=== PATIENT | female | born 1940 | race Two or more races ===

== ENCOUNTER 2016-05-26 08:36 | Emergency (ER) | payer MEDICARE, MEDICAID ==
[~2016-05-26] VITALS: Ht 162.6 cm; Wt 68.0 kg
[~2016-05-26 08:36] MED LIST: ACET500C8 PO; AMBR1TAB PO; AMLO10TA2 PO; B-COTAB10 OR; CALC667T2 PO; FOLITAB45 PO; GLIP-116 PO; INSU70IN9 SC; LABE5INJ PO; LISI40TA PO; MESA400C PO; OMEP20TA34 PO
[2016-05-26 10:19] LABS: Basophils # (auto) 0 uL; Basophils % (auto) 0.4 % (0.0-2.0); DEFINITIVE VIEW TRANSMISSION; Eosinophils # (auto) 0.1 uL; Eosinophils % (auto) 1.7 % (0.0-7.0); Lymphocytes # (auto) 0.6 uL; Lymphocytes % (auto) 14.1 % (10.0-50.0); Mean Corpuscular Hemoglobin 33.4 pg (28.0-32.0); Mean Platelet Volume 7.3 fL (7.4-10.4); Monocytes # (auto) 0.4 uL; Monocytes % (auto) 9.3 % (0.0-12.0); Neutrophils # (auto) 3.2 uL; Neutrophils % (auto) 74.5 % (37.0-80.0); Platelet Count (auto) 183 10^3/uL (140-450); Red Cell Distribution Width 19.1 % (11.6-16.0); White Blood Cell 4.3 10^3/uL (4.4-10.8)
[2016-05-26 10:36] LABS: Albumin 3.6 g/dL (3.4-5.0); BUN/Creatinine Ratio 5.9; Bilirubin, Total 0.7 mg/dL (0.2-1.0); Calcium 8.8 mg/dL (8.5-10.1); Potassium 3.7 mmol/L (3.5-5.1); Total Protein 7.5 g/dL (6.4-8.2)
[2016-05-26 10:41] LABS: Hemoglobin 6.9 g/dL (12.2-16.2)
[2016-05-26] MEDS ORDERED: ACETAMINOPHEN 325 MG TAB PO ONE (11:00)
[2016-05-26] MEDS ORDERED: NICARDIPINE 25MG/250ML BAG KIT 250 ML IV SCH (11:14)
[2016-05-26 12:08] VITALS: BP 122/56
[2016-05-26 12:15] LABS: Anisocytosis Slight; Platelet Estimate Adequate
[2016-05-26] MEDS ORDERED: DILTIAZEM HCL 25 MG/5 ML VIAL IV ONE (12:15)
== END 2016-05-26 12:11 | disposition short-term general hospital (02) ==
LOC: ER 08:36 → EDBD 08:36 → ER 12:11
DX: S06.5X0A Traumatic subdural hemorrhage without loss of consciousness, initial encounter (principal); I12.0 Hypertensive chronic kidney disease with stage 5 chronic kidney disease or end stage renal disease; N18.6 End stage renal disease; D64.9 Anemia, unspecified; E11.9 Type 2 diabetes mellitus without complications; M19.90 Unspecified osteoarthritis, unspecified site; Z99.2 Dependence on renal dialysis; W01.0XXA Fall on same level from slipping, tripping and stumbling without subsequent striking against object, initial encounter; Y93.89 Activity, other specified; Y99.8 Other external cause status; Y92.89 Other specified places as the place of occurrence of the external cause
CPT/HCPCS: 36415; 70450; 71010; 71111; 73590; 80053; 84484; 85025; 86850; 86900; 86901; 93005; 93971; 96374; 99291

== ENCOUNTER 2017-07-12 12:35 | Inpatient (IN) | payer MEDICARE, MEDICAID ==
[~2017-07-12] VITALS: Ht 154.9 cm; Wt 63.0 kg
[~2017-07-12 12:35] MED LIST changes: +ACE500T PO; -ACET500C8 PO; +ALEN35TA18 PO; -AMLO10TA2 PO; +AMLO5TAB2 PO; -B-COTAB10 OR; +B-COTAB10 PO; -CALC667T2 PO; -INSU70IN9 SC; +INSUINJ49 SC; -LABE5INJ PO; -LISI40TA PO
[2017-07-12] MEDS ORDERED: DEXTROSE 50% SYRINGE 50 ML IV ONE (12:41)
[2017-07-12] MEDS ORDERED: SODIUM CHLORIDE 0.9% 1,000 ML IV ONE (12:59)
[2017-07-12] MEDS ORDERED: PROMETHAZINE HCL 25 MG/ML 1ML IV ONE (13:00)
[2017-07-12] MEDS ORDERED: PROMETHAZINE HCL 25 MG/ML 1ML ONE (13:01)
[2017-07-12] MEDS ORDERED: DEXTROSE (50%) 50ML SYRG IV ONE ×2 (13:15→15:45)
[2017-07-12 13:45] LABS: Basophils # (auto) 0.1 uL; Basophils % (auto) 1.2 % (0.0-2.0); Eosinophils # (auto) 0 uL; Eosinophils % (auto) 0.8 % (0.0-7.0); Hematocrit 35.1 % (36.0-46.0); Hemoglobin 11.5 g/dL (12.2-16.2); Lymphocytes # (auto) 0.7 uL; Lymphocytes % (auto) 11.9 % (10.0-50.0); Mean Corpuscular Hemoglobin 32.3 pg (28.0-32.0); Mean Corpuscular Hgb Conc. 32.8 g/dL (32.0-36.0); Mean Corpuscular Volume 98.5 fL (80.0-100.0); Monocytes # (auto) 0.2 uL; Monocytes % (auto) 4.2 % (0.0-12.0); Neutrophils # (auto) 4.6 uL; Neutrophils % (auto) 81.9 % (37.0-80.0); Platelet Count (auto) 208 10^3/uL (140-450); Red Blood Cells 3.56 10^6/uL (4.0-5.20); Red Cell Distribution Width 17.8 % (11.8-14.3); White Blood Cell 5.6 10^3/uL (4.4-10.8)
[2017-07-12 13:52] LABS: Albumin 3.3 g/dL (3.4-5.0); Anion Gap 11 (5-15); Blood Alcohol < 3.0 mg/dL (0-5); Blood Urea Nitrogen 47 mg/dL (7-18); Calcium 8.6 mg/dL (8.5-10.1); Carbon Dioxide 27 mmol/L (21-32); Chloride 97 mmol/L (98-107); Glucose 114 mg/dL (74-106); Magnesium 2.4 mg/dL (1.6-2.6); Potassium 3.5 mmol/L (3.5-5.1); Sodium 135 mmol/L (136-145)
[2017-07-12 13:54] LABS: Alanine Aminotransferase 26 U/L (13-56); BUN/Creatinine Ratio 9.8; GFR African American 11 mL/min; GFR Non-African American 9 mL/min
[2017-07-12 13:59] LABS: Alkaline Phosphatase 85 U/L (45-117); Aspartate Aminotransferase 29 U/L (15-37); Bilirubin, Total 0.4 mg/dL (0.2-1.0); Total Protein 7.5 g/dL (6.4-8.2)
[2017-07-12] MEDS ORDERED: OCTREOTIDE ACETATE 100 MCG/ML VL SUBCUT ONE ×3 (15:45→17:30)
[2017-07-12 15:55] LABS: Urine Bacteria NONE SEEN /hpf (None Seen); Urine Blood 2+ /uL (Negative); Urine Specific Gravity 1.011 (1.001-1.035); Urine WBC 390 /hpf (0 - 5)
[2017-07-12] MEDS ORDERED: cefTRIAXone 1GM/10ml IVPUSH 10 ML IV ONE ×2 (16:30)
[2017-07-12] MEDS ORDERED: DEXTROSE (50%) 50ML SYRG IV PRN (16:30)
[2017-07-12] MEDS ORDERED: MORPHINE SULFATE 8mg/ml INJ SDV IV PRN ×2 (16:30)
[2017-07-12] MEDS ORDERED: NITROGLYCERIN 0.4 MG SL TAB SL PRN (16:30)
[2017-07-12] MEDS ORDERED: LORazepam 0.5 MG TAB PO PRN (16:30)
[2017-07-12] MEDS ORDERED: ALBUTEROL SULF 2.5 MG/0.5ML(0.5%) NEB SOLN NEB PRN (16:30)
[2017-07-12] MEDS ORDERED: TEMAZEPAM 15 MG CAP PO PRN (16:30)
[2017-07-12] MEDS ORDERED: LACTULOSE 20Gm/30ML SOLN PO PRN (16:30)
[2017-07-12] MEDS ORDERED: ACETAMINOPHEN 500 MG TAB PO PRN (16:30)
[2017-07-12] MEDS ORDERED: PROMETHAZINE HCL 25 MG/ML 1ML IV PRN (16:30)
[2017-07-12] MEDS ORDERED: LABETALOL HCL 5 MG/ML ML 20ML VIAL IV PRN (16:45)
[2017-07-12] MEDS: ENOXAPARIN SOD 30 MG/0.3 ML SYRINGE SC SCH (17:51)
[2017-07-12] MEDS ORDERED: DEXTROSE 10% 1,000 ML IV ONE (18:30)
[2017-07-12] MEDS: ACCU-CHEK COMFORT CURVE STRIP VI SCH ×2 (20:23→23:58)
[2017-07-12] MEDS: SODIUM CHLOR 0.9% PF (SALINE LOCK) 10ML VIAL/SYR IV SCH (21:32)
[2017-07-12] MEDS: PANTOPRAZOLE 40 MG TAB PO SCH (21:33)
[2017-07-12] MEDS: MESALAMINE 400mg Delayed Release Cap PO SCH (21:33)
[2017-07-12] MEDS: HYDROcodone-ACET 5/325MG TAB PO PRN (21:36)
[2017-07-12 21:44] VITALS: BP 156/83
[2017-07-12 22:00] VITALS: BP 161/76
[2017-07-12] MEDS ORDERED: OMEPRAZOLE 20 MG PO SCH (22:00)
[2017-07-12 23:00] VITALS: BP 149/66
[2017-07-13] VITALS (11 sets, daily range): BP systolic 138–177; BP diastolic 54–78
[2017-07-13] MEDS: LABETALOL HCL 5 MG/ML ML 20ML VIAL IV PRN ×4 (00:02→15:51)
[2017-07-13] MEDS: ACCU-CHEK COMFORT CURVE STRIP VI SCH ×6 (04:30→22:00)
[2017-07-13 05:08] LABS: Basophils # (auto) 0.1 uL; Basophils % (auto) 1.3 % (0.0-2.0); Eosinophils # (auto) 0.1 uL; Eosinophils % (auto) 1.3 % (0.0-7.0); Hematocrit 32.8 % (36.0-46.0); Hemoglobin 11.2 g/dL (12.2-16.2); Lymphocytes # (auto) 1.3 uL; Lymphocytes % (auto) 22.2 % (10.0-50.0); Mean Corpuscular Hemoglobin 33.7 pg (28.0-32.0); Mean Corpuscular Hgb Conc. 34.1 g/dL (32.0-36.0); Mean Corpuscular Volume 98.7 fL (80.0-100.0); Monocytes # (auto) 0.5 uL; Monocytes % (auto) 8.1 % (0.0-12.0); Neutrophils # (auto) 3.9 uL; Neutrophils % (auto) 67.1 % (37.0-80.0); Nucleated Red Blood Cells % 0.2 %; Platelet Count (auto) 209 10^3/uL (140-450); Red Blood Cells 3.33 10^6/uL (4.0-5.20); Red Cell Distribution Width 18.2 % (11.8-14.3); White Blood Cell 5.9 10^3/uL (4.4-10.8)
[2017-07-13 05:35] LABS: Albumin 3.1 g/dL (3.4-5.0); BUN/Creatinine Ratio 10.5; Calcium 8.7 mg/dL (8.5-10.1); Potassium 4.6 mmol/L (3.5-5.1)
[2017-07-13 05:38] LABS: Bilirubin, Total 0.4 mg/dL (0.2-1.0); Total Protein 7.1 g/dL (6.4-8.2)
[2017-07-13] MEDS: MESALAMINE 400mg Delayed Release Cap PO SCH ×3 (05:53→22:00)
[2017-07-13] MEDS: SODIUM CHLOR 0.9% PF (SALINE LOCK) 10ML VIAL/SYR IV SCH ×3 (05:53→22:46)
[2017-07-13] MEDS: cefTRIAXone 1GM/10ml IVPUSH 10 ML IV SCH (08:23)
[2017-07-13 08:31] LABS: Free T3 1.8 pg/mL (2.3-4.2); Free T4 (Free Thyroxine) 1.04 ng/dL (0.89-1.76)
[2017-07-13] MEDS: AMBRISENTAN 5 MG PO SCH (09:14)
[2017-07-13] MEDS: amLODIPine BESYLATE 5 MG TAB PO SCH (10:12)
[2017-07-13] MEDS: ENOXAPARIN SOD 30 MG/0.3 ML SYRINGE SC SCH (10:12)
[2017-07-13] MEDS ORDERED: DEXTROSE 10% 1,000 ML IV SCH (10:30)
[2017-07-13] MEDS ORDERED: amLODIPine BESYLATE 5 MG TAB PO ONE (12:45)
[2017-07-13] MEDS ORDERED: LISINOPRIL 20 MG TAB PO ONE (13:30)
[2017-07-13] MEDS: PANTOPRAZOLE 40 MG TAB PO SCH (22:46)
[2017-07-14] VITALS: BP 179/82
[2017-07-14] MEDS: ACCU-CHEK COMFORT CURVE STRIP VI SCH ×4 (00:06→14:04)
[2017-07-14] MEDS: HYDROcodone-ACET 5/325MG TAB PO PRN (02:34)
[2017-07-14 04:00] VITALS: BP 181/74
[2017-07-14] MEDS: MESALAMINE 400mg Delayed Release Cap PO SCH ×2 (06:00→14:00)
[2017-07-14 06:01] LABS: BUN/Creatinine Ratio 7.7; Magnesium 2.4 mg/dL (1.6-2.6); Potassium 4.9 mmol/L (3.5-5.1)
[2017-07-14 06:06] LABS: Basophils # (auto) 0 uL; Basophils % (auto) 0.8 % (0.0-2.0); Eosinophils # (auto) 0.1 uL; Eosinophils % (auto) 2.4 % (0.0-7.0); Hematocrit 27.8 % (36.0-46.0); Hemoglobin 9.3 g/dL (12.2-16.2); Lymphocytes # (auto) 1.2 uL; Lymphocytes % (auto) 23.1 % (10.0-50.0); Mean Corpuscular Hemoglobin 33.4 pg (28.0-32.0); Mean Corpuscular Hgb Conc. 33.4 g/dL (32.0-36.0); Mean Corpuscular Volume 100.1 fL (80.0-100.0); Monocytes # (auto) 0.4 uL; Monocytes % (auto) 6.8 % (0.0-12.0); Neutrophils # (auto) 3.6 uL; Neutrophils % (auto) 66.9 % (37.0-80.0); Platelet Count (auto) 184 10^3/uL (140-450); Red Blood Cells 2.78 10^6/uL (4.0-5.20); White Blood Cell 5.4 10^3/uL (4.4-10.8)
[2017-07-14] MEDS: LABETALOL HCL 5 MG/ML ML 20ML VIAL IV PRN (06:07)
[2017-07-14] MEDS: SODIUM CHLOR 0.9% PF (SALINE LOCK) 10ML VIAL/SYR IV SCH ×2 (06:10→14:03)
[2017-07-14 08:10] VITALS: BP 165/66
[2017-07-14] MEDS: cefTRIAXone 1GM/10ml IVPUSH 10 ML IV SCH (09:53)
[2017-07-14] MEDS: amLODIPine BESYLATE 5 MG TAB PO SCH (09:54)
[2017-07-14] MEDS: ENOXAPARIN SOD 30 MG/0.3 ML SYRINGE SC SCH (09:54)
[2017-07-14] MEDS: AMBRISENTAN 5 MG PO SCH (09:55)
[2017-07-14] MEDS ORDERED: LISINOPRIL 20 MG TAB PO SCH (10:00)
[2017-07-14 11:50] VITALS: BP_SYST 168; BP_DIAS 30; BP_DIAS 79
[2017-07-14] MEDS ORDERED: DEXTROSE (50%) 50ML SYRG IV PRN (14:15)
[2017-07-14 15:48] VITALS: BP 174/69
[2017-07-14 16:29] VITALS: BP 174/69
[2017-07-14] MEDS ORDERED: InsuLIN REG 1unit/0.01ml Soln (100units/ml) SC SCH (17:00)
[2017-07-14] MEDS ORDERED: ACCU-CHEK COMFORT CURVE STRIP VI SCH (17:00)
== END 2017-07-14 17:50 | disposition home or self-care (01) | DRG 682 ==
LOC: EDBD 12:35 → ER 12:35 → EDSEX 12:35 → TELE 12:36 → DOU IN ICU 20:03
PROVIDERS: ADMIT Internal Medicine; ATTEND Internal Medicine
PROC: 5A1D70Z Performance of Urinary Filtration, Intermittent, Less than 6 Hours Per Day (ICD-10-PCS; principal; 2017-07-13)
PROC: 02HV33Z Insertion of Infusion Device into Superior Vena Cava, Percutaneous Approach (ICD-10-PCS; 2017-07-13)
DX: I12.0 Hypertensive chronic kidney disease with stage 5 chronic kidney disease or end stage renal disease (principal); G93.41 Metabolic encephalopathy; A04.72 Enterocolitis due to Clostridium difficile, not specified as recurrent; E11.22 Type 2 diabetes mellitus with diabetic chronic kidney disease; E11.649 Type 2 diabetes mellitus with hypoglycemia without coma; N18.6 End stage renal disease; I27.20 Pulmonary hypertension, unspecified; N39.0 Urinary tract infection, site not specified; J44.9 Chronic obstructive pulmonary disease, unspecified; D63.8 Anemia in other chronic diseases classified elsewhere; D63.1 Anemia in chronic kidney disease; K59.00 Constipation, unspecified; G47.00 Insomnia, unspecified; F41.9 Anxiety disorder, unspecified; K80.20 Calculus of gallbladder without cholecystitis without obstruction; M19.90 Unspecified osteoarthritis, unspecified site; I16.0 Hypertensive urgency; H70.13 Chronic mastoiditis, bilateral; K46.9 Unspecified abdominal hernia without obstruction or gangrene; E03.9 Hypothyroidism, unspecified; Z82.49 Family history of ischemic heart disease and other diseases of the circulatory system; Z99.2 Dependence on renal dialysis; Z83.3 Family history of diabetes mellitus; Z88.8 Allergy status to other drugs, medicaments and biological substances; Z79.899 Other long term (current) drug therapy
CPT/HCPCS: 36415; 70450; 71045; 80048; 80053; 80320; 81001; 82962; 83036; 83735; 84439; 84443; 84481; 84484; 85025; 85652; 87081; 87086; 87493; 90935; 96361; 96365; 96374; 96375; 97163; J2270

== ENCOUNTER 2017-07-20 15:05 | Inpatient (IN) | payer MEDICARE, MEDICAID ==
[~2017-07-20] VITALS: Ht 152.4 cm; Wt 71.7 kg
[~2017-07-20 15:05] MED LIST changes: -GLIP-116 PO
[2017-07-20 16:14] LABS: Basophils # (auto) 0.1 uL; Basophils % (auto) 0.9 % (0.0-2.0); Eosinophils # (auto) 0.1 uL; Eosinophils % (auto) 1.1 % (0.0-7.0); Hematocrit 26.9 % (36.0-46.0); Lymphocytes % (auto) 12.2 % (10.0-50.0); Mean Corpuscular Hemoglobin 33.2 pg (28.0-32.0); Mean Corpuscular Hgb Conc. 33.4 g/dL (32.0-36.0); Mean Corpuscular Volume 99.3 fL (80.0-100.0); Monocytes # (auto) 0.6 uL; Monocytes % (auto) 7.4 % (0.0-12.0); Neutrophils # (auto) 6.5 uL; Neutrophils % (auto) 78.4 % (37.0-80.0); Platelet Count (auto) 144 10^3/uL (140-450); Red Blood Cells 2.71 10^6/uL (4.0-5.20); Red Cell Distribution Width 17.6 % (11.8-14.3); White Blood Cell 8.3 10^3/uL (4.4-10.8)
[2017-07-20 16:25] LABS: Alanine Aminotransferase 27 U/L (13-56); Alkaline Phosphatase 112 U/L (45-117); Anion Gap 6 (5-15); Aspartate Aminotransferase 35 U/L (15-37); Bilirubin, Total 0.4 mg/dL (0.2-1.0); Blood Urea Nitrogen 33 mg/dL (7-18); Calcium 8.2 mg/dL (8.5-10.1); Carbon Dioxide 34 mmol/L (21-32); Chloride 96 mmol/L (98-107); GFR African American 19 mL/min; GFR Non-African American 16 mL/min; Glucose 95 mg/dL (74-106); Magnesium 2.3 mg/dL (1.6-2.6); Potassium 3.7 mmol/L (3.5-5.1); Sodium 136 mmol/L (136-145)
[2017-07-20] MEDS ORDERED: DEXTROSE 50% SYRINGE 50 ML IV ONE (19:55)
[2017-07-20] MEDS ORDERED: DEXTROSE (50%) 50ML SYRG IV ONE (20:15)
[2017-07-20] MEDS ORDERED: MORPHINE SULFATE 8mg/ml INJ SDV IV PRN (21:00)
[2017-07-20] MEDS ORDERED: DEXTROSE 10% 1,000 ML IV SCH (21:00)
[2017-07-20] MEDS ORDERED: TEMAZEPAM 15 MG CAP PO PRN (21:00)
[2017-07-20] MEDS ORDERED: DEXTROSE (50%) 50ML SYRG IV PRN (21:00)
[2017-07-20] MEDS ORDERED: NITROGLYCERIN 0.4 MG SL TAB SL PRN (21:00)
[2017-07-20] MEDS ORDERED: ACETAMINOPHEN 325 MG TAB PO PRN (21:00)
[2017-07-20] MEDS: HYDROcodone-ACET 5/325MG TAB PO PRN (22:14)
[2017-07-20] MEDS: MESALAMINE 400mg Delayed Release Cap PO SCH (22:14)
[2017-07-20] MEDS: cloNIDine HCL 0.1 MG TAB PO PRN (22:35)
[2017-07-21] MEDS: ACCU-CHEK COMFORT CURVE STRIP VI SCH ×6 (00:20→16:48)
[2017-07-21] MEDS: HYDROcodone-ACET 5/325MG TAB PO PRN (02:14)
[2017-07-21] MEDS: InsuLIN REG 1unit/0.01ml Soln (100units/ml) SC SCH ×6 (04:00→22:00)
[2017-07-21] MEDS ORDERED: GLUCAGON HYDROCHLORIDE (RDNA) 1 MG VIAL SUBCUT ONE (04:15)
[2017-07-21] MEDS ORDERED: DEXTROSE 10% 1,000 ML IV ONE (04:15)
[2017-07-21 05:22] LABS: Basophils # (auto) 0.1 uL; Basophils % (auto) 1.2 % (0.0-2.0); Eosinophils # (auto) 0.1 uL; Eosinophils % (auto) 2.7 % (0.0-7.0); Hematocrit 27.3 % (36.0-46.0); Hemoglobin 9.2 g/dL (12.2-16.2); Lymphocytes % (auto) 23.2 % (10.0-50.0); Mean Corpuscular Hemoglobin 33.4 pg (28.0-32.0); Mean Corpuscular Hgb Conc. 33.6 g/dL (32.0-36.0); Mean Corpuscular Volume 99.4 fL (80.0-100.0); Monocytes # (auto) 0.5 uL; Monocytes % (auto) 11.3 % (0.0-12.0); Neutrophils # (auto) 2.7 uL; Neutrophils % (auto) 61.6 % (37.0-80.0); Nucleated Red Blood Cells % 0.1 %; Platelet Count (auto) 137 10^3/uL (140-450); Red Blood Cells 2.75 10^6/uL (4.0-5.20); Red Cell Distribution Width 17.3 % (11.8-14.3); White Blood Cell 4.4 10^3/uL (4.4-10.8)
[2017-07-21 05:44] LABS: BUN/Creatinine Ratio 11.8; Bilirubin, Total 0.3 mg/dL (0.2-1.0); Calcium 8.5 mg/dL (8.5-10.1); Potassium 4.2 mmol/L (3.5-5.1); Total Protein 6.9 g/dL (6.4-8.2)
[2017-07-21] MEDS: cloNIDine HCL 0.1 MG TAB PO PRN ×2 (06:11→12:25)
[2017-07-21] MEDS: MESALAMINE 400mg Delayed Release Cap PO SCH ×3 (06:11→22:39)
[2017-07-21] MEDS: ONDANSETRON HCL 4 MG/2 ML VIAL IV PRN (06:52)
[2017-07-21] MEDS: PANTOPRAZOLE 40 MG TAB PO SCH (10:07)
[2017-07-21] MEDS: amLODIPine BESYLATE 5 MG TAB PO SCH (10:07)
[2017-07-22] MEDS: ACCU-CHEK COMFORT CURVE STRIP VI SCH ×6 (00:25→20:02)
[2017-07-22] MEDS: hydrALAZINE HCL 20 MG/ML VL IV PRN ×2 (04:25→16:04)
[2017-07-22 05:30] LABS: Basophils # (auto) 0.1 uL; Eosinophils # (auto) 0.1 uL; Eosinophils % (auto) 2.2 % (0.0-7.0); Hematocrit 29.1 % (36.0-46.0); Hemoglobin 9.6 g/dL (12.2-16.2); Lymphocytes # (auto) 1.1 uL; Lymphocytes % (auto) 21.5 % (10.0-50.0); Mean Corpuscular Hemoglobin 32.6 pg (28.0-32.0); Monocytes # (auto) 0.4 uL; Monocytes % (auto) 7.6 % (0.0-12.0); Neutrophils # (auto) 3.5 uL; Neutrophils % (auto) 67.7 % (37.0-80.0); Nucleated Red Blood Cells % 0.2 %; Platelet Count (auto) 151 10^3/uL (140-450); Red Blood Cells 2.94 10^6/uL (4.0-5.20); Red Cell Distribution Width 18.1 % (11.8-14.3); White Blood Cell 5.1 10^3/uL (4.4-10.8)
[2017-07-22 05:44] LABS: BUN/Creatinine Ratio 10.7; Calcium 8.4 mg/dL (8.5-10.1); Potassium 5.5 mmol/L (3.5-5.1)
[2017-07-22] MEDS: InsuLIN REG 1unit/0.01ml Soln (100units/ml) SC SCH ×4 (07:00→22:00)
[2017-07-22] MEDS: MESALAMINE 400mg Delayed Release Cap PO SCH ×3 (07:40→22:20)
[2017-07-22] MEDS: cloNIDine HCL 0.1 MG TAB PO PRN (07:54)
[2017-07-22] MEDS: amLODIPine BESYLATE 5 MG TAB PO SCH (07:54)
[2017-07-22] MEDS: PANTOPRAZOLE 40 MG TAB PO SCH (09:12)
[2017-07-22 13:45] VITALS: BP 159/72
[2017-07-22] MEDS: metroNIDAZOLE 500MG/100ML 100 ML IV SCH ×2 (15:49→22:20)
[2017-07-22 17:07] VITALS: BP 186/77
[2017-07-22 18:04] VITALS: BP 184/80
[2017-07-22] MEDS ORDERED: LABETALOL HCL 5 MG/ML ML 20ML VIAL IV ONE (18:21)
[2017-07-22 20:05] VITALS: BP 167/75
[2017-07-22] MEDS: VANCOMYCIN HCL 125MG/5ML ORAL SOL GT SCH (20:55)
[2017-07-22 22:00] VITALS: BP 167/75
[2017-07-22] MEDS: LABETALOL HCL 5 MG/ML ML 20ML VIAL IV PRN (22:38)
[2017-07-22 23:30] VITALS: BP 156/70
[2017-07-23] VITALS (7 sets, daily range): BP systolic 149–190; BP diastolic 67–78
[2017-07-23] MEDS: ACCU-CHEK COMFORT CURVE STRIP VI SCH ×6 (00:47→20:00)
[2017-07-23] MEDS: LABETALOL HCL 5 MG/ML ML 20ML VIAL IV PRN ×4 (04:43→18:45)
[2017-07-23] MEDS: MESALAMINE 400mg Delayed Release Cap PO SCH ×3 (05:54→20:56)
[2017-07-23] MEDS: metroNIDAZOLE 500MG/100ML 100 ML IV SCH ×3 (05:54→20:57)
[2017-07-23 06:17] LABS: Basophils # (auto) 0 uL; Basophils % (auto) 0.7 % (0.0-2.0); Eosinophils # (auto) 0.1 uL; Eosinophils % (auto) 1.2 % (0.0-7.0); Hematocrit 26.1 % (36.0-46.0); Hemoglobin 8.9 g/dL (12.2-16.2); Lymphocytes # (auto) 0.8 uL; Lymphocytes % (auto) 18.7 % (10.0-50.0); Mean Corpuscular Hemoglobin 33.6 pg (28.0-32.0); Mean Corpuscular Hgb Conc. 34.1 g/dL (32.0-36.0); Mean Corpuscular Volume 98.6 fL (80.0-100.0); Monocytes # (auto) 0.4 uL; Neutrophils % (auto) 70.4 % (37.0-80.0); Nucleated Red Blood Cells % 0.1 %; Platelet Count (auto) 146 10^3/uL (140-450); Red Blood Cells 2.65 10^6/uL (4.0-5.20); White Blood Cell 4.3 10^3/uL (4.4-10.8)
[2017-07-23 06:26] LABS: BUN/Creatinine Ratio 11.4; Calcium 8.3 mg/dL (8.5-10.1)
[2017-07-23 06:29] LABS: Potassium 5.9 mmol/L (3.5-5.1)
[2017-07-23] MEDS: InsuLIN REG 1unit/0.01ml Soln (100units/ml) SC SCH ×4 (06:48→20:50)
[2017-07-23] MEDS ORDERED: SODIUM POLYSTYRENE SULF 15GM/60ML SUSP PO ONE (07:15)
[2017-07-23] MEDS: amLODIPine BESYLATE 5 MG TAB PO SCH (10:08)
[2017-07-23] MEDS: PANTOPRAZOLE 40 MG TAB PO SCH (10:08)
[2017-07-23] MEDS: FLORASTOR (S. BOULARDII) 250 MG CAP PO SCH ×2 (10:15→20:57)
[2017-07-23] MEDS ORDERED: EPOETIN ALFA 10,000 UNIT/1 ML VIAL IV ONE (11:30)
[2017-07-23] MEDS: VANCOMYCIN HCL 125MG/5ML ORAL SOL GT SCH ×2 (11:57→18:06)
[2017-07-24] VITALS (8 sets, daily range): BP systolic 101–180; BP diastolic 61–101
[2017-07-24] MEDS: HYDROcodone-ACET 5/325MG TAB PO PRN (01:04)
[2017-07-24] MEDS: ACCU-CHEK COMFORT CURVE STRIP VI SCH ×6 (04:00→19:31)
[2017-07-24] MEDS: VANCOMYCIN HCL 125MG/5ML ORAL SOL GT SCH ×4 (05:28→22:00)
[2017-07-24] MEDS: metroNIDAZOLE 500MG/100ML 100 ML IV SCH ×3 (05:44→19:31)
[2017-07-24] MEDS: MESALAMINE 400mg Delayed Release Cap PO SCH ×3 (05:44→19:31)
[2017-07-24] MEDS: InsuLIN REG 1unit/0.01ml Soln (100units/ml) SC SCH ×4 (05:45→22:00)
[2017-07-24 06:09] LABS: Basophils # (auto) 0.1 uL; Basophils % (auto) 1.7 % (0.0-2.0); Eosinophils # (auto) 0 uL; Eosinophils % (auto) 1.6 % (0.0-7.0); Hematocrit 25.8 % (36.0-46.0); Hemoglobin 8.7 g/dL (12.2-16.2); Lymphocytes # (auto) 0.8 uL; Lymphocytes % (auto) 26.1 % (10.0-50.0); Mean Corpuscular Hemoglobin 33.4 pg (28.0-32.0); Mean Corpuscular Hgb Conc. 33.6 g/dL (32.0-36.0); Mean Corpuscular Volume 99.5 fL (80.0-100.0); Monocytes # (auto) 0.4 uL; Monocytes % (auto) 13.5 % (0.0-12.0); Neutrophils # (auto) 1.8 uL; Neutrophils % (auto) 57.1 % (37.0-80.0); Nucleated Red Blood Cells % 0.1 %; Platelet Count (auto) 147 10^3/uL (140-450); Red Blood Cells 2.59 10^6/uL (4.0-5.20); White Blood Cell 3.1 10^3/uL (4.4-10.8)
[2017-07-24 06:25] LABS: BUN/Creatinine Ratio 9.8; Calcium 7.8 mg/dL (8.5-10.1); Potassium 4.2 mmol/L (3.5-5.1)
[2017-07-24] MEDS: FLORASTOR (S. BOULARDII) 250 MG CAP PO SCH ×2 (08:58→19:31)
[2017-07-24] MEDS: PANTOPRAZOLE 40 MG TAB PO SCH (08:59)
[2017-07-24] MEDS: amLODIPine BESYLATE 5 MG TAB PO SCH (08:59)
[2017-07-25] MEDS: ACCU-CHEK COMFORT CURVE STRIP VI SCH ×5 (03:00→17:30)
[2017-07-25] MEDS: HYDROcodone-ACET 5/325MG TAB PO PRN (03:29)
[2017-07-25] MEDS: hydrALAZINE HCL 20 MG/ML VL IV PRN (03:30)
[2017-07-25 04:59] VITALS: BP 152/48
[2017-07-25 05:00] VITALS: BP 136/63
[2017-07-25] MEDS: VANCOMYCIN HCL 125MG/5ML ORAL SOL GT SCH ×3 (05:16→18:03)
[2017-07-25] MEDS: MESALAMINE 400mg Delayed Release Cap PO SCH ×2 (05:33→13:43)
[2017-07-25] MEDS: metroNIDAZOLE 500MG/100ML 100 ML IV SCH ×2 (05:33→13:43)
[2017-07-25] MEDS: InsuLIN REG 1unit/0.01ml Soln (100units/ml) SC SCH ×3 (05:33→17:30)
[2017-07-25 06:10] LABS: Basophils # (auto) 0.1 uL; Basophils % (auto) 1.6 % (0.0-2.0); Eosinophils # (auto) 0.1 uL; Eosinophils % (auto) 3.6 % (0.0-7.0); Hematocrit 26.9 % (36.0-46.0); Hemoglobin 9.1 g/dL (12.2-16.2); Lymphocytes # (auto) 0.9 uL; Lymphocytes % (auto) 23.9 % (10.0-50.0); Mean Corpuscular Hemoglobin 33.8 pg (28.0-32.0); Mean Corpuscular Volume 99.5 fL (80.0-100.0); Monocytes # (auto) 0.4 uL; Neutrophils # (auto) 2.4 uL; Neutrophils % (auto) 59.9 % (37.0-80.0); Nucleated Red Blood Cells % 0.1 %; Platelet Count (auto) 151 10^3/uL (140-450); Red Cell Distribution Width 17.8 % (11.8-14.3); White Blood Cell 3.9 10^3/uL (4.4-10.8)
[2017-07-25 06:27] LABS: Calcium 8.3 mg/dL (8.5-10.1); Potassium 4.6 mmol/L (3.5-5.1)
[2017-07-25 06:30] LABS: BUN/Creatinine Ratio 8.7
[2017-07-25] MEDS: ONDANSETRON HCL 4 MG/2 ML VIAL IV PRN (07:49)
[2017-07-25 09:00] VITALS: BP 141/84
[2017-07-25] MEDS: PANTOPRAZOLE 40 MG TAB PO SCH (10:22)
[2017-07-25] MEDS: FLORASTOR (S. BOULARDII) 250 MG CAP PO SCH (10:22)
[2017-07-25] MEDS: amLODIPine BESYLATE 5 MG TAB PO SCH (10:23)
[2017-07-25 13:00] VITALS: BP 154/52
[2017-07-25 17:00] VITALS: BP 149/50
== END 2017-07-25 18:20 | DRG 291 ==
LOC: EDBD 15:05 → ER 15:10 → TELE 15:11 → TELE-CENTR 07-22 13:43
PROVIDERS: ADMIT Nurse Practitioner; ATTEND Internal Medicine
PROC: 5A1D70Z Performance of Urinary Filtration, Intermittent, Less than 6 Hours Per Day (ICD-10-PCS; principal; 2017-07-23)
DX: I13.2 Hypertensive heart and chronic kidney disease with heart failure and with stage 5 chronic kidney disease, or end stage renal disease (principal); G93.41 Metabolic encephalopathy; E11.649 Type 2 diabetes mellitus with hypoglycemia without coma; E11.22 Type 2 diabetes mellitus with diabetic chronic kidney disease; N18.6 End stage renal disease; E44.1 Mild protein-calorie malnutrition; E87.1 Hypo-osmolality and hyponatremia; E87.5 Hyperkalemia; D63.8 Anemia in other chronic diseases classified elsewhere; E27.9 Disorder of adrenal gland, unspecified; I50.9 Heart failure, unspecified; I70.0 Atherosclerosis of aorta; K52.9 Noninfective gastroenteritis and colitis, unspecified; K57.90 Diverticulosis of intestine, part unspecified, without perforation or abscess without bleeding; K80.20 Calculus of gallbladder without cholecystitis without obstruction; Z82.49 Family history of ischemic heart disease and other diseases of the circulatory system; Z83.3 Family history of diabetes mellitus; Z86.73 Personal history of transient ischemic attack (TIA), and cerebral infarction without residual deficits; Z99.2 Dependence on renal dialysis; M19.90 Unspecified osteoarthritis, unspecified site; Z82.61 Family history of arthritis; Z88.6 Allergy status to analgesic agent; Z79.899 Other long term (current) drug therapy; Z79.4 Long term (current) use of insulin; Z68.30 Body mass index [BMI] 30.0-30.9, adult
CPT/HCPCS: 36415; 70450; 71045; 74176; 80048; 80053; 82962; 83735; 84484; 85025; 87081; 87493; 90935; 93005; 96365; 96375; J0885; J1815; J2405; J3490